=== PATIENT | male | born 1965 | race Caucasian/White ===

== ENCOUNTER 2017-02-06 21:50 | Emergency (ER) | payer SELFPAY ==
[~2017-02-06] VITALS: Ht 175.3 cm; Wt 70.9 kg
[~2017-02-06 21:50] MED LIST: HYDR-3580 PO
[2017-02-06 21:58] VITALS: BP 118/58; PULSE 76; RESP 18; TEMP 97.5; O2SAT 95
--- NOTE | 2017-02-06 22:30 | PD ---
HPI Chief Complaint: Fall Time Seen by Provider: 22:25 Travel History International Travel<30 days: No Contact w/Intl Traveler<30days: No Traveled to known affect area: No History of Present Illness HPI 51 year-old male presents to the emergency department for complaint of right- sided rib pain and low back pain status post a non-syncopal slip and fall down 8 steps 3 days ago. Patient states at that time he took 2 ibuprofen without any relief. Patient states subsequently he has had persistent pain and pain with deep inspiratory effort and breathing. Patient denies shortness of breath at rest. Patient states he did not hit his head did not lose consciousness did not injure his neck or upper back. Patient states that he takes no blood thinning agents no prescription medications. Patient states that he was not seen initially because he had no insurance and thought it would improve but due to persistent pain and worsening pain decided to come to the emergency room. Patient rates his pain is 10 over 10 in intensity. Patient denies any extremity injury. No report of lower extremity numbness tingling or weakness, saddle anesthesia, or bladder or bowel dysfunction. PFSH Past Medical History Narrative Medical Dyslipidemia tobacco use; nursing notes reviewed Cancer: No Cardiovascular Problems: Yes (HIGH CHOLESTEROL) High Cholesterol: Yes Diabetes: No Diminished Hearing: No Endocrine: No Gastrointestinal Disorders: No Genitourinary: No Hepatitis: No Hiatal Hernia: No Hypertension: No Immune Disorder: No Musculoskeletal: No Neurologic: No Psychiatric: No Reproductive: No Respiratory: No Immunizations Current: Yes Thyroid Disease: No Past Surgical History Abdominal Surgery: No AICD: No Cardiac Surgery: No Ear Surgery: No Endocrine Surgery: No Eye Surgery: No Genitourinary Surgery: No Gynecologic Surgery: No Joint Replacement: No Neurologic Surgery: No Oral Surgery: No Pacemaker: No Thoracic Surgery: No Other Surgery: Yes (GANGLIoN CYST REMOVED NECK) Social History Alcohol Use: No (denies) Tobacco Use: Yes (2ppd) Substance Use: No Allergies-Medications (Allergen,Severity, Reaction): Coded Allergies: No Known Allergies (Verified , 07/14/15) Reported Meds & Prescriptions Reported Meds & Active Scripts Active Review of Systems Except as stated in HPI: all other systems reviewed are Neg Physical Exam Narrative GENERAL: Well-developed well-nourished male in no acute distress no respiratory distress; GCS 15 SKIN: Warm and dry. HEAD: Atraumatic. Normocephalic. EYES: Pupils equal and round. No scleral icterus. No injection or drainage. ENT: No nasal bleeding or discharge. Mucous membranes pink and moist. NECK: Trachea midline. No JVD. CARDIOVASCULAR: Regular rate and rhythm. Chest wall: No ecchymosis no abrasion no erythema no induration no crepitus tenderness to palpation along the lower right posterior chest wall and mid axillary chest wall. RESPIRATORY: No accessory muscle use. Clear to auscultation. Breath sounds equal bilaterally. GASTROINTESTINAL: Abdomen soft, non-tender, nondistended. Hepatic and splenic margins not palpable. MUSCULOSKELETAL: Extremities without clubbing, cyanosis, or edema. No obvious deformities. NEUROLOGICAL: Awake and alert. No obvious cranial nerve deficits. Motor grossly within normal limits. Five out of 5 muscle strength in the arms and legs. Normal speech. PSYCHIATRIC: Appropriate mood and affect; insight and judgment normal. Data Data Last Documented VS Vital Signs Date Time Temp Pulse Resp B/P (MAP) Pulse Ox O2 Delivery O2 Flow Rate FiO2 02/07/17 03:06 87 16 140/72 (94) 99 Room Air 02/06/17 21:58 97.5 Orders Orders Ribs, Uni (W/Exp Cxr-Min 3vw) (02/06/17 ) Spine, Lumbar - Ltd (Ap & Lat) (02/06/17 ) ^ Saline Lock (02/06/17 23:32) Basic Metabolic Panel (Bmp) (02/06/17 23:32) Complete Blood Count With Diff (02/06/17 23:32) Ua Includes Microscopic (02/06/17 23:32) Ondansetron Inj (Zofran Inj) (02/06/17 23:45) Morphine Inj (Morphine Inj) (02/06/17 23:45) Sodium Chlor 0.9% 1000 Ml Inj (Ns 1000 M (02/06/17 23:45) Type And Screen (02/06/17 23:32) Ct Abd/Pel W Iv Contrast(Rout) (02/07/17 00:01) Ct Thorax/ Chest W Iv Contrast (02/07/17 ) Iohexol 350 Inj (Omnipaque 350 Inj) (02/07/17 02:36) Labs Laboratory Tests Test 02/06/17 23:50 White Blood Count 7.8 TH/MM3 Red Blood Count 5.27 MIL/MM3 Hemoglobin 15.4 GM/DL Hematocrit 45.9 % Mean Corpuscular Volume 87.0 FL Mean Corpuscular Hemoglobin 29.3 PG Mean Corpuscular Hemoglobin Concent 33.7 % Red Cell Distribution Width 11.7 % Platelet Count 306 TH/MM3 Mean Platelet Volume 8.7 FL Neutrophils (%) (Auto) 72.7 % Lymphocytes (%) (Auto) 15.1 % Monocytes (%) (Auto) 7.4 % Eosinophils (%) (Auto) 3.4 % Basophils (%) (Auto) 1.4 % Neutrophils # (Auto) 5.6 TH/MM3 Lymphocytes # (Auto) 1.2 TH/MM3 Monocytes # (Auto) 0.6 TH/MM3 Eosinophils # (Auto) 0.3 TH/MM3 Basophils # (Auto) 0.1 TH/MM3 CBC Comment DIFF FINAL Differential Comment Urine Color YELLOW Urine Turbidity SLIGHT Urine pH 5.5 Urine Specific [place] 1.023 Urine Protein NEG mg/dL Urine Glucose (UA) NEG mg/dL Urine Ketones NEG mg/dL Urine Occult Blood NEG Urine Nitrite NEG Urine Bilirubin NEG Urine Leukocyte Esterase NEG Urine WBC 6-8 /hpf Urine Squamous Epithelial Cells 0-5 /hpf Urine Bacteria OCC /hpf Urine Hyaline Casts 3-5 /lpf Urine Mucus MOD /lpf Blood Urea Nitrogen 12 MG/DL Creatinine 1.00 MG/DL Random Glucose 78 MG/DL Calcium Level 8.4 MG/DL Sodium Level 139 MEQ/L Potassium Level 3.8 MEQ/L Chloride Level 105 MEQ/L Carbon Dioxide Level 26.4 MEQ/L Anion Gap 8 MEQ/L Estimat Glomerular Filtration Rate 78 ML/MIN MDM Medical Decision Making Medical Screen Exam Complete: Yes Emergency Medical Condition: Yes Medical Record Reviewed: Yes Differential Diagnosis Chest wall contusion, rib fracture, pneumothorax, hemopneumothorax, compression fracture lumbar strain sprain sciatica Narrative Course Imaging studies ordered right rib xr: ribs 8&9 fractured with right pleural effusion --no pneumothorax noted CT abd/pel and thorax ordered Physician Communication Physician Communication discussed with trauma surgeon Dr Geiger --follow up in the trauma clinic Diagnosis Primary Impression: Multiple rib fractures Additional Impression: Pleural effusion, right Referrals: General Surgeon call for appointment call in AM to schedule ffollow up in the TRAUMA clinic Patient Instructions: General Instructions, Narcotic given in the ED Additional Instructions: Follow-up in the trauma clinic call office in a.m. to schedule follow-up appointment Return immediately to the nearest emergency department for sudden shortness of breath after forceful cough sneeze laugh turn associated with chest pain Increase fluid hydration Return to the emergency department for any concerns or change in condition Take pain medication as prescribed as needed Med/Other Pt SpecificInfo: Prescription(s) given Scripts Tramadol (Tramadol) 50 Mg Tab 50 MG PO Q6H Y for PAIN, #10 TAB 0 Refills Prov: Jacqueline Ryder MD 02/07/17 Ondansetron Odt (Zofran Odt) 4 Mg Tab 4 MG SL Q6HR Y for Nausea/Vomiting, #12 TAB 0 Refills Prov: Jacqueline Ryder MD 02/07/17 Disposition: 01 DISCHARGE HOME Condition: Stable Jacqueline Ryder MD Feb 06, 2017 22:30
--- NOTE | 2017-02-06 23:18 | RADRPT ---
EXAM DATE/TIME: 02/06/2017 22:54 [facility] COMPARISON: No previous studies available for comparison. INDICATIONS : Right rib pain for 3 days. Patient fell. MEDICAL HISTORY : Hypercholesterolemia. Hypertension. Hyperlipidemia. SURGICAL HISTORY : Left femur and bilateral knee surgery. Rotator cuff surgery. Right hip fracture repair. ENCOUNTER: Initial ACUITY: 3 days PAIN SCORE: 10/10 LOCATION: Right chest FINDINGS: There is fracturing of the right eighth and ninth ribs. There is a mild right pleural effusion with b lunting of the right costophrenic angle. No pneumothorax is seen. The heart size is normal. The lungs are grossly clear. CONCLUSION: Right eighth and ninth rib fractures. Kenny Lewis MD on February 06, 2017 at 23:14 Board Certified Radiologist. This report was verified electronically.
--- NOTE | 2017-02-06 23:19 | RADRPT ---
EXAM DATE/TIME: 02/06/2017 22:54 [facility] COMPARISON: No previous studies available for comparison. INDICATIONS : Lower back pain. Patient fell 3 days ago. MEDICAL HISTORY : Hypercholesterolemia. Hypertension. Hyperlipidemia. SURGICAL HISTORY : Left femur and bilateral knee surgery. Rotator cuff surgery. Right hip fracture repair. ENCOUNTER: Initial ACUITY: 3 days PAIN SCORE: 10/10 LOCATION: Lumbar. FINDINGS: D. lumbar vertebral bodies are normal in height and normally aligned in the sagittal plane. There is a minimal levocurvature of the lumbar spine. There is mild disc space narrowing at the L2-L3 and L4-L 5 levels. Mild marginal osteophytes are seen from L2-L5. The facet and sacroiliac joints are intact. Surgical clips are seen in the right upper quadrant. Vascular calcifications are seen at the aorta. CONCLUSION: Mild degenerative change. Kenny Lewis MD on February 06, 2017 at 23:16 Board Certified Radiologist. This report was verified electronically.
[2017-02-06] MEDS ORDERED: SODIUM CHLOR 0.9% 1000 ML INJ 1,000 ML IV ONE (23:45)
[2017-02-06] MEDS ORDERED: ONDANSETRON HCL 4 MG/2 ML VIAL IV PUSH ONE (23:45)
[2017-02-06] MEDS ORDERED: MORPHINE SULFATE 4 MG/ML INJ IV PUSH ONE (23:45)
[2017-02-07 00:44] LABS: AUTOMATED NEUTROPHIL # 5.6 TH/MM3 (1.8-7.7); BASOPHIL # 0.1 TH/MM3 (0-0.2); BASOPHIL % 1.4 % (0.0-2.0); EOSINOPHIL # 0.3 TH/MM3 (0-0.4); EOSINOPHIL % 3.4 % (0.0-4.0); HEMATOCRIT 45.9 % (39.0-51.0); HEMOGLOBIN 15.4 GM/DL (13.0-17.0); LYMPH % 15.1 % (9.0-44.0); LYMPHOCYTE # 1.2 TH/MM3 (1.0-4.8); MEAN CORPUSCULAR HEMOGLOBIN 29.3 PG (27.0-34.0); MEAN CORPUSCULAR HGB CONC 33.7 % (32.0-36.0); MEAN PLATELET VOLUME 8.7 FL (7.0-11.0); MONO % 7.4 % (0.0-8.0); MONOCYTE # 0.6 TH/MM3 (0-0.9); NEUT % 72.7 % (16.0-70.0); PLATELET COUNT 306 TH/MM3 (150-450); RED BLOOD COUNT 5.27 MIL/MM3 (4.50-5.90); RED CELL DISTRIBUTION WIDTH 11.7 % (11.6-17.2); WHITE BLOOD COUNT 7.8 TH/MM3 (4.0-11.0)
[2017-02-07 00:45] LABS: BILIRUBIN, URINE NEG (NEG); BLOOD, URINE NEG (NEG); GLUCOSE,URINE NEG (NEG); KETONE, URINE NEG (NEG); NITRITE,URINE NEG (NEG); PH, URINE 5.5 (5.0-8.5); URINE LEUKOCYTE ESTERASE NEG (NEG)
[2017-02-07 00:54] LABS: MUCUS URINE MOD /lpf (OCC); SQUAMOUS EPITHELIAL CELL URINE 0-5 /hpf (0-5); URINE COLOR YELLOW (YELLW/STRAW)
[2017-02-07 00:56] LABS: BACTERIA, URINE OCC /hpf
[2017-02-07 01:37] LABS: CALCIUM 8.4 MG/DL (8.5-10.1)
[2017-02-07 01:38] LABS: BICARBONATE 26.4 MEQ/L (21.0-32.0)
[2017-02-07] MEDS ORDERED: IOHEXOL 350 MG/ML 10 ML VIAL (for RAD DIAG) IVCONTRAST ONE (02:36)
[2017-02-07 03:06] VITALS: BP 140/72; PULSE 87; RESP 16; O2SAT 99
--- NOTE | 2017-02-07 03:07 | RADRPT ---
EXAM DATE/TIME: 02/07/2017 02:13 [facility] COMPARISON: No previous studies available for comparison. INDICATIONS : Chest pain post fall. IV CONTRAST: 100 cc Omnipaque 350 (iohexol) IV ; Cumulative dose for multiple exams. RADIATION DOSE: 13.79 CTDIvol (mGy) ; Combined studies - Thorax/Abdomen/Pelvis MEDICAL HISTORY : None SURGICAL HISTORY : None. ENCOUNTER: Initial ACUITY: 3 days PAIN SCALE: 10/10 LOCATION: Right chest TECHNIQUE: Volumetric scanning of the chest was performed. Using automated exposure control and adjustment of t he mA and/or kV according to patient size, radiation dose was kept as low as reasonably achievable to obtain optimal diagnostic quality images. DICOM format image data is available electronically for review and comparison. Follow-up recommendations for detected pulmonary nodules are based at a minimum on nodule size and pa tient risk factors according to Fleischner Society Guidelines. FINDINGS: LUNGS: There is increased density at the posterior right lung base likely related to atelectasis associated with the right effusion. PLEURA: There is a mild right pleural effusion. MEDIASTINUM: The heart and great vessels demonstrate no acute abnormality. There is no mediastinal or hilar lymph adenopathy. Coronary artery calcifications are present. AXILLAE: Within normal limits. No lymphadenopathy. SKELETAL: There are fractures of the right eighth and ninth ribs. MISCELLANEOUS: The visualized upper abdominal organs demonstrate no acute abnormality. CONCLUSION: 1. Right eighth and ninth rib fractures. 2. Mild right effusion with accompanying atelectasis at the right lung base. Kenny Lewis MD on February 07, 2017 at 3:02 Board Certified Radiologist. This report was verified electronically.
--- NOTE | 2017-02-07 03:13 | RADRPT ---
EXAM DATE/TIME: 02/07/2017 02:13 [facility] COMPARISON: CT ABDOMEN & PELVIS W CONTRAST, August 15, 2015, 2:53. INDICATIONS : Right flank and lower back pain post fall. IV CONTRAST: 100 cc Omnipaque 350 (iohexol) IV ; Cumulative dose for multiple exams. ORAL CONTRAST: No oral contrast ingested. RADIATION DOSE: 13.79 CTDIvol (mGy) ; Combined studies - Thorax/Abdomen/Pelvis MEDICAL HISTORY : None SURGICAL HISTORY : None. ENCOUNTER: Initial ACUITY: 3 days PAIN SCALE: 10/10 LOCATION: Right flank Lower back. TECHNIQUE: Volumetric scanning of the abdomen and pelvis was performed. Using automated exposure control and ad justment of the mA and/or kV according to patient size, radiation dose was kept as low as reasonably achievable to obtain optimal diagnostic quality images. DICOM format image data is available electro nically for review and comparison. FINDINGS: LOWER LUNGS: There is a mild right pleural effusion and accompanying atelectasis of the right lung base. LIVER: There is mild diffuse decreased attenuation of the liver. Focal hepatic lesions are not seen. The pat ient is status post cholecystectomy. SPLEEN: The spleen is enlarged measuring 14 cm in length. No focal splenic lesions seen. PANCREAS: Within normal limits. KIDNEYS: There are 3 nonobstructing right renal stones measuring up to 4 mm. There is a small 2 mm nonobstruct ing left renal stone. There is a 6 mm renal cyst seen in the right kidney. No hydronephrosis is seen. ADRENAL GLANDS: Within normal limits. VASCULAR: There is no aortic aneurysm. Atherosclerotic calcifications are seen. BOWEL/MESENTERY: There scattered colonic diverticula especially in the sigmoid region. ABDOMINAL WALL: Within normal limits. RETROPERITONEUM: There is no lymphadenopathy. BLADDER: No wall thickening or mass. REPRODUCTIVE: Prostatic calcifications are present. INGUINAL: There is no lymphadenopathy or hernia. MUSCULOSKELETAL: There are acute fractures of the right eighth and ninth ribs. There is focal sclerosis of the lateral eighth rib likely related to a bone island. This was present previously. There is some degenerative change in the lumbar spine. CONCLUSION: 1. No acute abnormality seen in the abdomen and pelvis. 2. Hepatic steatosis. 3. Nonobstructing renal stones. 4. Colonic diverticula Kenny Lewis MD on February 07, 2017 at 3:06 Board Certified Radiologist. This report was verified electronically.
[2017-02-07] MEDS ORDERED: ZOFR4TAB3 SL (04:11)
[2017-02-07] MEDS ORDERED: TRAM50TA PO (04:11)
[2017-02-07 04:51] VITALS: BP 126/72
== END 2017-02-07 04:53 | disposition home or self-care (01) ==
LOC: PHEFT 21:50 → PHED 02-07 04:53
DX: S22.41XA Multiple fractures of ribs, right side, initial encounter for closed fracture (principal); J90 Pleural effusion, not elsewhere classified; E78.00 Pure hypercholesterolemia, unspecified; I10 Essential (primary) hypertension; F17.210 Nicotine dependence, cigarettes, uncomplicated; W10.9XXA Fall (on) (from) unspecified stairs and steps, initial encounter
CPT/HCPCS: 71101; 71260; 72100; 74177; 80048; 81001; 85025; 86850; 86900; 86901; 96361; 96374; 96375; 99285; J2270; J2405; J7030; Q9967

== ENCOUNTER 2017-04-07 16:10 | Emergency (ER) | payer SELFPAY ==
[~2017-04-07] VITALS: Ht 175.3 cm; Wt 73.2 kg
[~2017-04-07 16:10] MED LIST changes: -HYDR-3580 PO; +TRAM50TA PO; +ZOFR4TAB3 SL
[2017-04-07 16:46] VITALS: BP 132/79; PULSE 77; RESP 16; TEMP 98.6; O2SAT 97
[2017-04-07] MEDS ORDERED: CLIN300C5 PO (17:40)
--- NOTE | 2017-04-07 17:41 | PD ---
HPI Chief Complaint: Skin Problem Time Seen by Provider: 17:25 Travel History International Travel<30 days: No Contact w/Intl Traveler<30days: No Traveled to known affect area: No History of Present Illness HPI This is a 52-year-old male here with what he believes is an infection of his left upper extremity. He reports an area of pain, erythema, swelling to the left forearm 3 days. He reports he was injecting IV Dilaudid into the left arm when he "missed the vein" he denies fever or chills. No chest pain or shortness of breath. Denies any possibility of a retained foreign body such as a broken needle. Symptom severity is moderate. No aggravating or alleviating factors. PFSH Past Medical History Cancer: No Cardiovascular Problems: Yes (HIGH CHOLESTEROL) High Cholesterol: Yes Diabetes: No Diminished Hearing: No Endocrine: No Gastrointestinal Disorders: No Genitourinary: No Hepatitis: No Hiatal Hernia: No Hypertension: No Immune Disorder: No Musculoskeletal: No Neurologic: No Psychiatric: No Reproductive: No Respiratory: No Immunizations Current: Yes Thyroid Disease: No Tetanus Vaccination: < 5 Years Influenza Vaccination: No ?: Not Past Surgical History Abdominal Surgery: No AICD: No Cardiac Surgery: No Ear Surgery: No Endocrine Surgery: No Eye Surgery: No Genitourinary Surgery: No Gynecologic Surgery: No Joint Replacement: No Neurologic Surgery: No Oral Surgery: No Pacemaker: No Thoracic Surgery: No Other Surgery: Yes (GANGLIoN CYST REMOVED NECK) Social History Alcohol Use: No (denies) Tobacco Use: Yes (2ppd) Substance Use: No Allergies-Medications (Allergen,Severity, Reaction): Coded Allergies: No Known Allergies (Verified Adverse Reaction, Unknown, 04/07/17) Reported Meds & Prescriptions Reported Meds & Active Scripts Active No Active Prescriptions or Reported Medications Review of Systems Except as stated in HPI: all other systems reviewed are Neg General / Constitutional: No: Fever Eyes: No: Visual changes HENT: No: Headaches Cardiovascular: No: Chest Pain or Discomfort Respiratory: No: Shortness of Breath Gastrointestinal: No: Abdominal Pain Genitourinary: No: Dysuria Skin: No Rash Neurologic: No: Weakness Physical Exam Narrative GENERAL: Alert and well-appearing 52-year-old male SKIN: Warm and dry. 3X3 CM tender raised area to the volar aspect of the left forearm. The area is indurated without fluctuance. Mild erythema. No lymphangitis. HEAD: Normocephalic. EYES: No scleral icterus. No injection or drainage. NECK: Supple CARDIOVASCULAR: Regular rate and rhythm. No murmur appreciated. RESPIRATORY: Breath sounds equal bilaterally. No accessory muscle use. MUSCULOSKELETAL: No cyanosis, or edema. No joint swelling. Data Data Last Documented VS Vital Signs Date Time Temp Pulse Resp B/P (MAP) Pulse Ox O2 Delivery O2 Flow Rate FiO2 04/07/17 16:46 98.6 77 16 132/79 (96) 97 MDM Medical Decision Making Medical Screen Exam Complete: Yes Emergency Medical Condition: Yes Differential Diagnosis Early abscess, cellulitis, hematoma Narrative Course This is a 52-year-old male here with an early abscess to the left forearm. The area is indurated without fluctuance. He is nontoxic appearing. His vital signs are stable. The abscess is not ready to be incised and drained today. He will be put on clindamycin. Instructed to apply warm compresses. Follow-up with primary doctor or return in 2 days for recheck and possible incision and drainage Diagnosis Primary Impression: Abscess Referrals: Primary Care Physician Additional Instructions: Antibiotics as directed. Apply warm compresses to the area several times per day. Follow-up in 2 days for recheck and possible incision and drainage at that time Scripts Clindamycin (Clindamycin) 300 Mg Cap 300 MG PO Q6H for Infection for 10 Days, #40 CAP 0 Refills Prov: Cindy Can 04/07/17 Disposition: 01 DISCHARGE HOME Condition: Stable Cindy Can Apr 07, 2017 17:41
== END 2017-04-07 17:48 | disposition home or self-care (01) ==
LOC: PHEFT 16:10
DX: L02.414 Cutaneous abscess of left upper limb (principal); F17.210 Nicotine dependence, cigarettes, uncomplicated
CPT/HCPCS: 99283

== ENCOUNTER 2017-04-09 09:57 | Emergency (ER) | payer SELFPAY ==
[~2017-04-09] VITALS: Ht 172.7 cm; Wt 72.0 kg
[~2017-04-09 09:57] MED LIST changes: +CLIN300C5 PO
[2017-04-09 10:16] VITALS: BP 143/80; PULSE 70; RESP 20; TEMP 99.4; O2SAT 98
--- NOTE | 2017-04-09 10:53 | PD ---
HPI Chief Complaint: Skin Problem Time Seen by Provider: 10:47 Travel History International Travel<30 days: No Contact w/Intl Traveler<30days: No Traveled to known affect area: No History of Present Illness HPI Patient comes back to the emergency department for I&D of abscess of the left forearm. He states abscess began approximately 7 days ago. Patient reports he was seen here 2 days ago and was told it was not ready to be opened up he was given prescription for clindamycin. Patient reports he is unable to afford the clindamycin and has not been taking it. Patient reports applying warm compresses seem to help some. Patient describes a throbbing pressure-like pain over the abscess without radiation. Touching it makes the pain worse. Denies any fevers, chest pain, neck pain, or shortness of breath. PFSH Past Medical History Cancer: No Cardiovascular Problems: Yes (HIGH CHOLESTEROL) High Cholesterol: Yes Diabetes: No Diminished Hearing: No Endocrine: No Gastrointestinal Disorders: No Genitourinary: No Hepatitis: No Hiatal Hernia: No Hypertension: No Immune Disorder: No Musculoskeletal: No Neurologic: No Psychiatric: No Reproductive: No Respiratory: No Immunizations Current: Yes Thyroid Disease: No Influenza Vaccination: No Past Surgical History Abdominal Surgery: No AICD: No Cardiac Surgery: No Ear Surgery: No Endocrine Surgery: No Eye Surgery: No Genitourinary Surgery: No Gynecologic Surgery: No Joint Replacement: No Neurologic Surgery: No Oral Surgery: No Pacemaker: No Thoracic Surgery: No Other Surgery: Yes (GANGLIoN CYST REMOVED NECK) Social History Alcohol Use: No Tobacco Use: Yes (2ppd) Substance Use: No Allergies-Medications (Allergen,Severity, Reaction): Coded Allergies: No Known Allergies (Verified Adverse Reaction, Unknown, 04/09/17) Reported Meds & Prescriptions Reported Meds & Active Scripts Active Keflex (Cephalexin) 500 Mg Cap 500 Mg PO Q8H Bactrim DS (Sulfamethoxazole-Trimethoprim) 800-160 Mg Tab 1 Tab PO BID Clindamycin (Clindamycin HCl) 300 Mg Cap 300 Mg PO Q6H 10 Days Review of Systems Except as stated in HPI: all other systems reviewed are Neg Physical Exam Narrative GENERAL: Well-developed, well nourished, in no acute distress, and non-ill appearing. SKIN: Focused skin assessment warm and dry. There is a tender fluctuant abscess noted of the left forearm. There is no crepitus. There is some surrounding induration and erythematous. HEAD: Atraumatic. Normocephalic. EYES: Pupils equal and round. EOMI. No scleral icterus. No injection or drainage. ENT: No nasal bleeding or discharge. Mucous membranes pink and moist. NECK: Trachea midline. Supple. No nuclear rigidity. RESPIRATORY: No accessory muscle use. No respiratory distress. MUSCULOSKELETAL: No obvious deformities. No clubbing. No cyanosis. No edema. Full range of motion. NEUROLOGICAL: Awake and alert. No obvious cranial nerve deficits. Motor grossly within normal limits. Normal speech. PSYCHIATRIC: Appropriate mood and affect; insight and judgment normal. Data Data Last Documented VS Vital Signs Date Time Temp Pulse Resp B/P (MAP) Pulse Ox O2 Delivery O2 Flow Rate FiO2 04/09/17 10:16 99.4 70 20 143/80 (101) 98 Orders Orders Wound Culture And Gram Stain (04/09/17 10:49) Clindamycin Inj (Cleocin Inj) (04/09/17 11:00) Lidocai-Epi 1%-1:100,000 Inj (Xylocaine- (04/09/17 11:00) Ed Discharge Order (04/09/17 11:22) MDM Medical Decision Making Medical Screen Exam Complete: Yes Emergency Medical Condition: Yes Differential Diagnosis Abscess, cellulitis, gangrene, necrotizing fasciitis Narrative Course The patient has no evidence of significant cellulitis. There is no evidence of necrotizing fasciitis/ [place] at this time. The patient will be discharged on antibiotics. The patient was given signs and symptoms warnings for worsening infection, such as spreading of redness, increasing pain, and/or swelling, associated heat, or fever or feels worse, and instructed to return immediately if these signs or symptoms worsen. The patient is to return in 2 days for recheck. Sooner if worsens or as needed. The patient agrees with plan. Patient in no obvious distress upon re-evaluation. Patient was asked if they wanted to speak to my attending, which the patient did not wish to do at this time. Any questions/concerns in reference to patient diagnosis/condition discussed and clarified prior to patient's discharge. Reinforced sheer importance of close follow up with patient's primary physician or primary care clinic. Instructed patient to return to ED immediately, if symptoms return/ worsen. Patient showed understanding of above instructions. Further instructions and recommendations were detailed in discharge paperwork. Patient ambulated without difficulty out of ED at discharge. Procedures Procedure Narrative INCISION AND DRAINAGE OF ABSCESS: Verbal consent was obtained. The area was prepped. A subcutaneous wheal of 1% Xylocaine with epi with a total number 2 mL was used to anesthetize the area. The area was properly anesthetized. A number 11 scalpel was used to make a 1.5-cm incision across the area of the abscess. The abscess was drained and irrigated with normal saline. Quarter inch iodoform packing was placed in the wound. Sterile dressing applied by nurse. Patient tolerated procedure well. Patient advised to return here in 2 days to have packing removed and wound rechecked. Patient verbalized understanding. Diagnosis Primary Impression: Abscess Referrals: [facility] Patient Instructions: Abscess (GEN), Abscess Incision and Drainage (DC), General Instructions Additional Instructions: Follow-up with your primary care physician or return here in 2 days for recheck. Take all medication as prescribed. Apply warm compresses to the affected area to continue promoting drainage. Use [id number] Tylenol and ibuprofen as needed for pain. Follow instructions on the packaging. Return to the emergency department if symptoms get worse. Med/Other Pt SpecificInfo: Prescription(s) given Scripts Cephalexin (Keflex) 500 Mg Cap 500 MG PO Q8H for Infection, #30 CAP 0 Refills Prov: Wade Machado MD 04/09/17 Sulfamethoxazole-Trimethoprim (Bactrim DS) 800-160 Mg Tab 1 TAB PO BID for Infection, #20 TAB 0 Refills Prov: Wade Machado MD 04/09/17 Disposition: 01 DISCHARGE HOME Condition: Stable Myron Peck Apr 09, 2017 10:52
[2017-04-09] MEDS ORDERED: CLINDAMYCIN PHOS 600 MG/4 ML VIAL IM ONE (11:00)
[2017-04-09] MEDS ORDERED: LIDOCAINE 1%/EPINEPHrine 1:100,000 SOLN 50 ML VIAL INFIL ONE (11:00)
[2017-04-09] MEDS ORDERED: CEPH-460 PO (11:21)
[2017-04-09] MEDS ORDERED: BACT800T5 PO (11:21)
== END 2017-04-09 11:38 | disposition home or self-care (01) ==
LOC: PHED 09:57 → PHEFT 11:38
DX: L02.414 Cutaneous abscess of left upper limb (principal); B95.4 Other streptococcus as the cause of diseases classified elsewhere; E78.00 Pure hypercholesterolemia, unspecified; F17.200 Nicotine dependence, unspecified, uncomplicated
CPT/HCPCS: 10061; 87070; 96372